=== PATIENT | female | born 1985 | race Caucasian/White ===

== ENCOUNTER 2020-09-25 15:43 | Emergency (ER) | payer SELFPAY ==
[~2020-09-25] VITALS: Ht 160 cm; Wt 66.5 kg
--- NOTE | 2020-09-25 15:45 | NUR ---
pg code neuro @ 9407 pg neuro @ 1646
--- NOTE | 2020-09-25 16:10 | NUR ---
pt returned from CT to T3. pt still non-verbal and rigid. not answering questions or following commands no obvious injury noted NPA removed in CT scan no family at bedside
--- NOTE | 2020-09-25 16:20 | NUR ---
pt now awake and yelling "I gotta pee!" attempting to calm pt. pt agitated attempting to assess pt, but to mari questions pt states "I don't know! I gotta pee!" no resp distress
[2020-09-25 16:24] LABS: BASOPHILS % (AUTO) 1 % (0-1); EOSINOPHILS % (AUTO) 0 % (1-7); LYMPHOCYTES % (AUTO) 39 % (22-44); MEAN CORPUSCULAR HEMOGLOBIN 33.5 pg (27.0-34.8); MEAN CORPUSCULAR HGB CONC 33.8 g/dL (32.4-35.8); MEAN PLATELET VOLUME 7.4 fL (7.4-10.4); MONOCYTES % (AUTO) 4 % (2-9); NEUTROPHILS % (AUTO) 57 % (42-75); PLATELET COUNT 289 x10^3/uL (130-400); RED BLOOD COUNT 4.69 x10^6/uL (3.82-5.3); RED CELL DISTRIBUTION WIDTH 12.9 % (9.6-15.2)
--- NOTE | 2020-09-25 16:30 | NUR ---
pt has been assisted to urinate. pt given fresh linens and warm blankets. pt now awake and answering questions. pt states that she was drinking vodka with her friend at the bus stop. pt c/o back pain, but denies injuy. pt states that she does not remember coming here pt repots that her only medical hx is a remote Dx of epilepsy. pt states that she has not had any seizures "in years" and that she takes no medications for sz
[2020-09-25 16:36] LABS: ALANINE AMINOTRANSFERASE 20 U/L (12-78); ALBUMIN 4.4 g/dL (3.4-5.0); ANION GAP 11 mmol/L (5-15); CALCIUM 8.9 mg/dL (8.5-10.1); CHLORIDE 110 mmol/L (98-107); CREATININE 0.87 mg/dL (0.55-1.02)
[2020-09-25 16:38] LABS: ALKALINE PHOSPHATASE 62 U/L (45-117); BILIRUBIN,TOTAL 1.1 mg/dL (0.2-1.0); TOTAL PROTEIN 8.5 g/dL (6.4-8.2)
[2020-09-25 16:39] LABS: SALICYLATE LEVEL < 1.7 mg/dL (2.8-20.0)
--- NOTE | 2020-09-25 16:40 | NUR ---
Dr. Pa has been to bedside for nbew evaluation now that pt is awake. this RN has assisted pt to call he mother upon admit, pt had a large pocket knife on her person that [facility] gave to staff. knife has been checked in with security
[2020-09-25 16:45] LABS: MD NO
[2020-09-25 17:42] LABS: AMPHETAMINE SCREEN, URINE Negative (Negative); BARBITURATE SCREEN, URINE Negative (Negative); BENZODIAZEPINE SCREEN, URINE Negative (Negative); CANNABINOID SCREEN, URINE Negative (Negative); COCAINE SCREEN, URINE Negative (Negative); METHADONE SCREEN, URINE Negative (Negative); OPIATE SCREEN, URINE Negative (Negative)
--- NOTE | 2020-09-25 17:50 | NUR ---
pt in RAD
--- NOTE | 2020-09-25 18:10 | NUR ---
this tech. Unplugged pt. from vitals machine and helped walk pt. to the restroom. The entier time pt. was perfectly steady but because increasingly rude and verbally abusive. Pt. was informed she can not talk to staff that way and that we are just here to help to which the pt. stated "you're not Fing helping me, do your job for once". pt. placed back on vitals machine and resting in bed.
--- NOTE | 2020-09-25 18:11 | NUR ---
pt has been ambulated to BR with tech. pt ambulated well without assist pt has been swearing at staff
[2020-09-25 18:59] VITALS: BP 99/69
== END 2020-09-25 19:03 | disposition home or self-care (01) ==
LOC: ED 18:25
DX: F10.229 Alcohol dependence with intoxication, unspecified (principal); R41.82 Altered mental status, unspecified; R56.9 Unspecified convulsions; R94.31 Abnormal electrocardiogram [ECG] [EKG]; F17.210 Nicotine dependence, cigarettes, uncomplicated; Y90.0 Blood alcohol level of less than 20 mg/100 ml
CPT/HCPCS: 36415; 70450; 72110; 80047; 80053; 80299; 80307; 80320; 80329; 85025; 93005; 99285; 99406; G0480

== ENCOUNTER 2021-01-08 00:04 | Emergency (ER) | payer MEDICAID, OTHER ==
[~2021-01-08] VITALS: Ht 160 cm; Wt 67.7 kg
--- NOTE | 2021-01-08 00:28 | NUR ---
BIB EMS FROM HOME. PT HEAVY ETOH DRINKER. MOM WENT INTO PT'S HOUSE BECAYSE PT WAS SEIZING. EMS STATED WITNESSING 2 SEIZURES AND 10 MG VERSED IM GIVEN X 2. UNABLE TO GET IV. PT A/OX3-4 AT THIS TIME. PT STATES DRINKING 2 BIG BOTLES A DAY AND WAS RECENTLY RELEASED FROM REHAB. PT DENIES TAKING ANY SEIZURE MEDICATIONS. ERP AT BEDSIDE. ABLE TO GET 22 G IV Addendum: 01/08/21 at 0245 by [email or web address] Report received from HUNTER Snow. This RN to assume care.
--- NOTE | 2021-01-08 00:36 | NUR ---
PT PLACED ON SEIZURE PRECAUTIONS AND EKG COMPLETED UPON ARRIVAL
--- NOTE | 2021-01-08 00:52 | NUR ---
THIS RN WENT TO CHECK ON PT AND PT WAS NON RESPONSIVE, NO RESP DISTRESS, HR 130-140. ERP TO BEDSIDE, ABLE TO TRACK WITH EYES, GIVEN 1MG IV ATIVAN PER DR. MATHEWS. PT MOVING EXTREMITIES BUT NOT ANSWERING QUESTIONS WHEN SPOKEN TO. ERP STATES TO CONTINUE TO WATCH PT AND WILL ORDER LABS AND CT SCAN.
--- NOTE | 2021-01-08 00:55 | NUR ---
PT NOW TALKING AND ASKING HOW SHE GOT HERE. GCS 14 AT THIS TIME
--- NOTE | 2021-01-08 01:21 | NUR ---
BREAK RN: PT RESTING IN ROOM. VS STABLE. STRAP BUCKLER MACHINE ON. CALL LIGHT IN PLACE. WILL CONTINUE TO MONITOR.
[2021-01-08] MEDS ORDERED: LORazepam 2 MG/ML, 1ML IVPush ONE (01:30)
[2021-01-08 01:43] LABS: BASOPHILS % (AUTO) 1 % (0-1); EOSINOPHILS % (AUTO) 0 % (1-7); LYMPHOCYTES % (AUTO) 33 % (22-44); MD NO; MEAN CORPUSCULAR HEMOGLOBIN 33.7 pg (27.0-34.8); MEAN CORPUSCULAR HGB CONC 34.9 g/dL (32.4-35.8); MEAN PLATELET VOLUME 6.4 fL (7.4-10.4); MONOCYTES % (AUTO) 4 % (2-9); NEUTROPHILS % (AUTO) 62 % (42-75); PLATELET COUNT 280 x10^3/uL (130-400); RED BLOOD COUNT 4.16 x10^6/uL (3.82-5.3); RED CELL DISTRIBUTION WIDTH 13.1 % (9.6-15.2)
[2021-01-08 01:55] LABS: ALANINE AMINOTRANSFERASE 33 U/L (12-78); ANION GAP 15 mmol/L (5-15); CALCIUM 7.8 mg/dL (8.5-10.1); CHLORIDE 107 mmol/L (98-107); CREATININE 0.62 mg/dL (0.55-1.02)
--- NOTE | 2021-01-08 01:55 | NUR ---
REPOT GIVEN TO HUNTER LUCAS
[2021-01-08 01:57] LABS: ALKALINE PHOSPHATASE 52 U/L (45-117); BILIRUBIN,TOTAL 0.8 mg/dL (0.2-1.0); TOTAL PROTEIN 7.6 g/dL (6.4-8.2)
[2021-01-08 02:01] LABS: SALICYLATE LEVEL < 1.7 mg/dL (2.8-20.0)
--- NOTE | 2021-01-08 02:01 | NUR ---
pt to ct at this time
--- NOTE | 2021-01-08 02:45 | NUR ---
Report received from HUNTER Snow. This RN to assume care.
--- NOTE | 2021-01-08 02:48 | NUR ---
Patient sleeping in gurney. Respirations even and unlabored.
[2021-01-08 02:58] LABS: AMPHETAMINE SCREEN, URINE Negative (Negative); BARBITURATE SCREEN, URINE Negative (Negative); BENZODIAZEPINE SCREEN, URINE Positive (Negative); CANNABINOID SCREEN, URINE Negative (Negative); COCAINE SCREEN, URINE Negative (Negative); METHADONE SCREEN, URINE Negative (Negative); OPIATE SCREEN, URINE Negative (Negative)
[2021-01-08] MEDS ORDERED: SODIUM CHLORIDE 0.9% 1,000ML IVBOLUS ONE (04:00)
[2021-01-08] MEDS ORDERED: LEVETIRACETAM 1,000 MG in SODIUM CHLORIDE 0.9% 100 ML IV ONE (04:00)
--- NOTE | 2021-01-08 04:37 | NUR ---
Provided water. Awaiting meds to complete.
--- NOTE | 2021-01-08 05:21 | NUR ---
"Road tested" patient; patient ambulatory with a steady gait. Contacted patient's mother for a ride.
[2021-01-08 05:24] VITALS: BP 103/38
--- NOTE | 2021-01-08 06:01 | NUR ---
Discharge instructions given. All questions and concerns addressed. Patient ambulatory with a steady gait. Belongings with patient.
== END 2021-01-08 06:11 | disposition home or self-care (01) ==
LOC: ED 01:42
DX: G40.919 Epilepsy, unspecified, intractable, without status epilepticus (principal); F10.129 Alcohol abuse with intoxication, unspecified; R89.2 Abnormal level of other drugs, medicaments and biological substances in specimens from other organs, systems and tissues; R41.82 Altered mental status, unspecified; R94.31 Abnormal electrocardiogram [ECG] [EKG]; F17.210 Nicotine dependence, cigarettes, uncomplicated; Y90.0 Blood alcohol level of less than 20 mg/100 ml
CPT/HCPCS: 70450; 80053; 80299; 80307; 80320; 80329; 82962; 85025; 93005; 96365; 96375; 99285; 99406; J1953; J2060; J7030; G0480

== ENCOUNTER 2021-01-09 14:56 | Emergency (ER) | payer MEDICAID, OTHER ==
[~2021-01-09] VITALS: Ht 160 cm; Wt 63.0 kg
--- NOTE | 2021-01-09 16:07 | NUR ---
REQUESTING MEDICAL CLEARENCE TO GO STAY AT A SOBER LIVING HOUSE TO HELP "GET CLEAN FROM ALCOHOL". PT STATES SHE IS "SHAKY AND NAUSEOUS". PT STATES SHE WAS DC'D FROM HOSPITAL YESTERDAY AM AFTER HAVING A SEIZURE R/T ETOH AND AFTER BEING DC'D "I GOT HOME AND DRANK VODKA IMMEDIATELY, MORE THEN A PINT, THE SIZE RIGHT UNDER A HANDLE". LAST DRINK AROUND 2100 01/08/21. PT CALM AND SITTING UP IN GURNEY, DOES HAVE TREMULOUS HANDS AND ARMS.
[2021-01-09] MEDS ORDERED: LORazepam 1MG TABLET ONE (16:30)
[2021-01-09] MEDS ORDERED: LORazepam 1MG TABLET PO ONE (16:30)
[2021-01-09 16:54] LABS: BASOPHILS % (AUTO) 1 % (0-1); EOSINOPHILS % (AUTO) 0 % (1-7); LYMPHOCYTES % (AUTO) 27 % (22-44); MEAN CORPUSCULAR HEMOGLOBIN 33.6 pg (27.0-34.8); MEAN CORPUSCULAR HGB CONC 35.3 g/dL (32.4-35.8); MEAN PLATELET VOLUME 6.8 fL (7.4-10.4); MONOCYTES % (AUTO) 7 % (2-9); NEUTROPHILS % (AUTO) 66 % (42-75); PLATELET COUNT 278 x10^3/uL (130-400); RED BLOOD COUNT 3.83 x10^6/uL (3.82-5.3); RED CELL DISTRIBUTION WIDTH 12.8 % (9.6-15.2)
[2021-01-09 16:56] LABS: ALANINE AMINOTRANSFERASE 60 U/L (12-78); ALBUMIN 4.1 g/dL (3.4-5.0); ANION GAP 13 mmol/L (5-15); CALCIUM 8.4 mg/dL (8.5-10.1); CHLORIDE 100 mmol/L (98-107)
[2021-01-09 16:59] LABS: ALKALINE PHOSPHATASE 52 U/L (45-117); BILIRUBIN,TOTAL 1.8 mg/dL (0.2-1.0); CREATININE 0.51 mg/dL (0.55-1.02); MD NO; TOTAL PROTEIN 7.7 g/dL (6.4-8.2)
[2021-01-09 17:45] VITALS: BP 135/82
== END 2021-01-09 17:47 | disposition home or self-care (01) ==
LOC: ED 17:21
DX: F10.139 Alcohol abuse with withdrawal, unspecified (principal); R45.4 Irritability and anger; G40.909 Epilepsy, unspecified, not intractable, without status epilepticus; Y90.0 Blood alcohol level of less than 20 mg/100 ml
CPT/HCPCS: 36415; 80053; 80320; 83735; 85025; 99283; G0480

== ENCOUNTER 2021-02-04 11:41 | Emergency (ER) | payer MEDICAID ==
[~2021-02-04] VITALS: Ht 160 cm; Wt 66.4 kg
[2021-02-04 11:59] VITALS: BP 121/77
== END 2021-02-04 12:53 | disposition home or self-care (01) ==
LOC: ED 12:30
DX: S50.01XA Contusion of right elbow, initial encounter (principal); F17.210 Nicotine dependence, cigarettes, uncomplicated; W18.30XA Fall on same level, unspecified, initial encounter; Y93.89 Activity, other specified; Y92.009 Unspecified place in unspecified non-institutional (private) residence as the place of occurrence of the external cause; Y99.8 Other external cause status
CPT/HCPCS: 29105; 99283